=== PATIENT | female | born 1935 | race Caucasian/White ===

== ENCOUNTER 2021-02-26 13:59 | Outpatient (CLI) | payer OTHER ==
[~2021-02-26 13:59] MED LIST: ATORVASTATIN CA10 MG PO; COZAAR100 MG PO; ELIQUIS5 MG PO; IBANDRONATE SO150 MG PO; PREVACID30 MG PO; PROVENTIL S1 ML/5 MG IH; ZANTAC 2525 MG PO
== END 2021-02-26 14:02 | disposition home or self-care (01) ==
LOC: SONOGRAMA 13:59
PROVIDERS: ATTEND Pathology Anatomic Pathology & Clinical Pathology
DX: E04.1 Nontoxic single thyroid nodule (principal)